=== PATIENT | male | born 1975 | race Hispanic/Latino ===

== ENCOUNTER → 2018-11-28 08:46 | Outpatient (CLI) | payer OTHER, SELFPAY ==
--- NOTE | 2018-11-28 | DI.MRI.S_ITS ---
PROCEDURE: MR SHOULDER RT W CON INDICATIONS: ADHESIVE CAPSULITIS OF RIGHT TECHNIQUE: After the administration of 12 mL of dilute intra-articular Gadolinium contrast, oblique coronal T1 and T2 spin echo with fat saturation, oblique sagittal T1 spin echo with and without fat saturation, oblique sagittal T2 fast spin echo with fat saturation, axial T1 spin echo with fat saturation through the shoulder. COMPARISON: None. FINDINGS: Image quality: Excellent. Rotator cuff: Tendinosis and locally articular and bursal surface partial-thickness tear involving distal supraspinatus and infraspinatus at the insertion greater tuberosity is seen extending to musculotendinous junction. Distal subscapularis tendon is intact. No full-thickness rotator cuff tendon rupture. No rotator cuff muscle atrophy on sagittal images. Bones and bursae: Mild acromioclavicular joint osteophytic changes are seen. No marrow edema. No fracture or dislocation. Mild glenohumeral joint osteoarthritis is also noted. The acromion demonstrates conventional anatomy, without an os acromiale. Capsule and soft tissues: The labrum and glenohumeral ligaments appear intact. The long head of the biceps tendon demonstrates normal location and morphology. The rotator interval appears normal, without fibrosis. The coracohumeral ligament is of normal thickness. No intra-articular bodies. IMPRESSION: 1. No evidence of focal labral tear. 2. Tendinosis and low-grade articular and bursal surface partial-thickness tear involving distal supraspinatus and infraspinatus. 3. Mild acromioclavicular joint glenohumeral joint osteoarthritis. Dictated by: Dominic Ellington M.D. on 11/28/2018 at 10:40 Approved by: Dominic Ellington M.D. on 11/28/2018 at 11:09
--- NOTE | 2018-11-28 | DI.RAD.S_ITS ---
PROCEDURE: FL SHOULDER INJECTION MR/CT RT INDICATIONS: ADHESIVE CAPSULITIS OF RIGHT TECHNIQUE: The indications, alternatives, benefits, risks, and complications of the procedure were explained to the patient. Written informed consent was obtained and placed in the chart. The shoulder was examined fluoroscopically and a site for needle placement chosen for entry into the glenohumeral joint from an anterior approach. The skin was prepped and draped in a sterile fashion, and 1% lidocaine infiltrated from skin down to joint capsule. A spinal needle was inserted into the glenohumeral joint, and a small amount of iodinated contrast media injected to confirm intra-articular placement of the needle tip. This was followed by approximately 12 mL dilute solution of a gadolinium containing MR contrast agent. The needle was removed and a dressing was applied. The patient was given postprocedural instructions and sent to the MR suite for MR imaging. FINDINGS: A single fluoroscopic spot image demonstrates intra-articular location of injected iodinated contrast. IMPRESSION: Successful fluoroscopically guided administration of dilute Gadolinium solution into the shoulder joint for MR arthrogram. Dictated by: Dominic Ellington M.D. on 11/28/2018 at 10:38 Approved by: Dominic Ellington M.D. on 11/28/2018 at 10:38
== END ==
PROVIDERS: Visit Provider General Practice
DX: M75.01 Adhesive capsulitis of right shoulder (principal); M75.111 Incomplete rotator cuff tear or rupture of right shoulder, not specified as traumatic; M19.011 Primary osteoarthritis, right shoulder
CPT/HCPCS: 23350; 73222; 77002

== ENCOUNTER 2019-09-19 11:40 | Emergency (ER) | payer OTHER, SELFPAY ==
[2019-09-19 12:46] VITALS: BP 120/75; PULSE 70; RESP 13; TEMP 36.5; O2SAT 98
--- NOTE | 2019-09-19 13:22 | ED_ITS ---
HPI - Dental/Oral <PITO New - Last Filed: 09/19/19 13:32> General Chief complaint: Dental/Oral Stated complaint: Right side oral/facial pain Time Seen by Provider: 09/19/19 13:08 Source: patient and family Mode of arrival: Ambulatory Limitations: no limitations History of Present Illness HPI Narrative: The patient is a 44-year-old male nonsmoker with history of poor dentition and multiple fillings and dental procedures who presents with a chief complaint of right-sided gum pain. He states that [place] and that when he received a dental block he felt his tongue ago numb. He has been back to see the dentist several times since the procedure. He states that since then he still a tingly feeling in his tongue and his comes. He states that his gum is now very sensitive, and painful at times. He states he was told that this is nerve pain, and was given ibuprofen 600. He states that this is not helping the pain. He states he wants to follow up with his regular doctor in the next few days, also follow up with dentist but he is having trouble with pain. He denies any fevers nausea vomiting or diarrhea. He states that the dentist says that there is no infection he does not need antibiotics. He states that his dentist as said that will take several months for these nerves to feel better. The pain is described as electric and shooting. Related Data Home Medications Medication Instructions Recorded Confirmed atorvastatin [Lipitor] 20 mg PO HS #30 tab 03/19/16 Previous Rx's Medication Instructions Recorded doxycycline hyclate 100 mg PO Q12H #20 cap 03/19/16 gabapentin 100 mg PO BID #20 cap 09/19/19 ketorolac 10 mg PO TID PRN #15 tab 09/19/19 Review of Systems <PITO New - Last Filed: 09/19/19 13:32> Review of Systems Narrative: GENERAL: Denies chills, fatigue, malaise, fever, sweats. HEENT: See HPI RESPIRATORY: Denies dyspnea, cough, wheezing, hemoptysis, sputum. CARDIOVASCULAR: Denies chest pain, palpitations, orthopnea, edema, GASTROINTESTINAL: Denies nausea, vomiting, abdominal pain, diarrhea, constipation, melena. : Denies dysuria, frequency, incontinence, hematuria, urinary retention. MUSCULOSKELETAL: denies weakness, joint pain, or bony pain SKIN: Denies rash, skin lesions, or other NEUROLOGIC: Denies weakness, headache, numbness, change in speech, confusion, seizures, incoordination. PSYCHIATRIC: No concerning psychosocial issues. 12 point review of systems is negative except for those stated above Patient History <Roxy PITO Calles - Last Filed: 09/19/19 13:32> Social History Smoking Status: Never smoker Smoking Status: Never smoker Substance Use Type: does not use Exam <Roxy MASHA Calles - Last Filed: 09/19/19 13:32> Narrative Exam Narrative: GENERAL: This is a well-nourished, well-developed patient, in no acute distress HEAD: Atraumatic. Normocephalic. No temporal or scalp tenderness. EYES: Pupils equal round and reactive. Extraocular motions intact. No scleral icterus. No injection or drainage. ENT: Nose without bleeding, purulent drainage or septal hematoma. Throat without erythema, tonsillar hypertrophy or exudate. Uvula midline. Airway patent. Poor dentition with multiple fillings noted. Patent has pain to palpation of right lower gum line, with no palpable fluctuance, no erythema. NECK: Trachea midline. No JVD or lymphadenopathy. Supple, nontender, no meningeal signs. CARDIOVASCULAR: Regular rate and rhythm RESPIRATORY: Clear to auscultation. Breath sounds equal bilaterally. No wheezes, rales, or rhonchi. No cough. No increased respiratory effort. No accessory muscle use GASTROINTESTINAL: Abdomen soft, non-tender, nondistended. No hepato- splenomegaly, or palpable masses. No guarding. EXTREMITIES: No clubbing, cyanosis, or edema. No joint tenderness, effusion, or edema noted. BACK: Nontender without deformity or crepitance. No flank tenderness. NEURO: AOx3. SKIN: No rash or erythema on visible skin. Initial Vital Signs Initial Vital Signs: Vital Signs Temperature 97.7 F 09/19/19 12:46 Pulse Rate 70 09/19/19 12:46 Respiratory Rate 13 09/19/19 12:46 Blood Pressure 120/75 09/19/19 12:46 Pulse Oximetry 98 09/19/19 12:46 <Audra Adrian MD - Last Filed: 09/19/19 13:39> Initial Vital Signs Initial Vital Signs: Vital Signs Temperature 97.7 F 09/19/19 12:46 Pulse Rate 70 09/19/19 12:46 Respiratory Rate 13 09/19/19 12:46 Blood Pressure 120/75 09/19/19 12:46 Pulse Oximetry 98 09/19/19 12:46 Course <PITO New - Last Filed: 09/19/19 13:32> Vital Signs Vital signs: Vital Signs - 8 hr 09/19/19 12:46 Temperature 97.7 F Pulse Rate 70 Respiratory Rate 13 Blood Pressure 120/75 Pulse Oximetry 98 <Audra Adrian MD - Last Filed: 09/19/19 13:39> Vital Signs Vital signs: Vital Signs - 8 hr 09/19/19 12:46 Temperature 97.7 F Pulse Rate 70 Respiratory Rate 13 Blood Pressure 120/75 Pulse Oximetry 98 MDM - Dental/Oral <PITO New - Last Filed: 09/19/19 13:32> MDM Narrative Medical decision making narrative: The patient is a 44-year-old male who presents with his for chief complaint of pain after dental procedure several weeks ago. 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 His exam does not indicate any infection or abscess, which correlates with previous exams done by his dentist post his procedure. His pain appears to be nerve pain related, possibly due to the block that he had during his procedure. He has been using ibuprofen 600 without success, so I did prescribe Toradol. Discussed use of Orajel etcetera. Also decided to start on gabapentin twice a day which his medical provider increase as needed and able. Patient has no questions or concerns upon discharge and states understanding of return precautions as well as follow-up care. I encouraged him to follow up with his PCP as well as his dentist in the next few days. Discussed monitor for signs and symptoms of infections. Patient has no questions or concerns upon discharge. Discharge Plan Departure Patient Disposition: Home Clinical Impression: Acute pain of mouth Discharge Date/Time: 09/19/19 13:36 Instructions: DI for Dental Pain Activity Restrictions/Additional Instructions: There are no signs of infection on your exam today. Please follow-up with primary care provider as well as your dentist. I have given you a prescription of Toradol. This is an NSAID. Do not combine it with other NSAIDs such as Aleve or ibuprofen. I suggest taking it with some food, as it can irritate your stomach. I also sent a prescription of gabapentin which is a nerve pain medication. I sent these 2 prescriptions to [facility] in [place]. Please come back to emergency department for any acute concerns such as concern for heart attack stroke etcetera Prescriptions: New gabapentin 100 mg capsule 100 mg PO BID Qty: 20 RF: 0 ketorolac 10 mg tablet 10 mg PO TID PRN (Reason: pain) Qty: 15 RF: 0 No Action atorvastatin [Lipitor] 20 MG tablet 20 mg PO HS Qty: 30 RF: 0 doxycycline hyclate 100 MG capsule 100 mg PO Q12H Qty: 20 RF: 0 Referrals: Bert Schafer [Primary Care Provider] -
== END 2019-09-19 13:36 | disposition home or self-care (01) ==
PROVIDERS: Emergency Provider Nurse Practitioner Family; PCP General Practice
DX: K08.89 Other specified disorders of teeth and supporting structures (principal)
CPT/HCPCS: 99281

== ENCOUNTER 2023-07-14 03:08 | Emergency (ER) | payer OTHER, SELFPAY ==
[2023-07-14 03:15] VITALS: BP 128/82; PULSE 58; RESP 16; TEMP 36.7; O2SAT 98; BMI 29.6
--- NOTE | 2023-07-14 03:15 | ED_ITS ---
HPI - General Adult General Chief complaint: Extremity Problem,Nontraumatic Stated complaint: right shoulder pain x1 week Time Seen by Provider: 07/14/23 03:15 History of Present Illness HPI narrative: 47-year-old gentleman with a history of hyperlipidemia, currently active duty [place], presents with neck and shoulder pain. You describes no specific trauma or incident that started this episode of pain. It has been present for approximately a week seem to reach a peak yesterday. He notes that the pain seems to be on the inner portion of his scapula, is definitely positional he is not noticing weakness or paresthesias down his arm. He is not having any chest pain, dyspnea or palpitations. He has never had similar symptoms Related Data Home Medications Medication Instructions Recorded Confirmed atorvastatin 20 mg tablet (Lipitor) 20 mg PO HS #30 tabs 03/19/16 Previous Rx's Medication Instructions Recorded doxycycline hyclate 100 mg capsule 100 mg PO Q12H #20 caps 03/19/16 gabapentin 100 mg capsule 100 mg PO BID #20 caps 09/19/19 ketorolac 10 mg tablet 10 mg PO TID PRN pain #15 tabs 09/19/19 dexamethasone 4 mg tablet 10 mg (2.5 x 4 mg) PO DAILY #5 tabs 07/14/23 gabapentin 100 mg capsule 100 mg PO BID #20 caps 07/14/23 oxycodone-acetaminophen 5 mg-325 1 tab PO Q6H PRN pain #10 tabs 07/14/23 mg tablet Allergies Allergy/AdvReac Type Severity Reaction Status Date / Time No Known Drug Allergies Allergy Verified 07/14/23 03:34 Review of Systems Review of Systems Narrative: Pertinent positive and negative findings as per HPI Patient History Medical History (Updated 07/14/23 @ 03:40 by Audra Adrian MD) Hyperlipidemia Social History Smoking Status: Never smoker Smoking Status: Never smoker Substance Use Type: does not use Exam Narrative Exam Narrative: General: Alert appropriate in no acute distress Respiratory: Able to speak in full sentences, no obvious respiratory distress Skin: No obvious rashes, warm and dry Neurologic: Grossly intact no obvious asymmetries or abnormalities Psych: appropriate insight and affect, cooperative Neck: He has tenderness midline C7-C8 that reproduces pain radiating down to the medial portion of his scapula on the right side. There is no redness or fullness Extremity: Right upper extremity is unremarkable. He has full and nonpainful range of motion at the shoulder. With active internal rotation he has pain along the medial scapula and if lifting his arm above his head he has similar pain. Medical Decision Making MDM Narrative Medical decision making narrative: CC: Shoulder pain Data collected from: patient Social determinants of health that may influence the patients condition: He is deploying to [facility] in 45 days Differential considered: Rotator cuff injury, shoulder joint abnormality, pneumonia Exam documented above, pertinent findings include: Surprisingly, the patient is actually quite tender midline C7-8 and this completely reproduces his pain. He had not identified this is the source of tenderness previously. He is tender to palpation along the medial aspect of his scapula but palpation in this area does not reproduce his pain. Passive range of motion of the shoulder does not reproduce his pain. He is neurovascularly intact down his right arm Treatments: Oral dexamethasone and oral oxycodone, cervical soft collar is placed Discussion: I believe this is C5 radiculopathy affecting the dorsal scapular nerve descending from the cervical region down to the medial border of the scapula. It also elevates the levator scapula, rhomboid major and rhomboid minor which explains the shoulder complaints of pain. There is no evidence of pneumonia or pulmonary dysfunction. We talked about options for treating the pain including using a soft cervical collar to support the neck. This is for comfort only if that is not helpful he does not need to continue. I will place him on 3 days of dexamethasone, 1st dose is given today. Talked about regular use of ibuprofen and Tylenol. We will give him a brief course of oxycodone to use for the next 2-3 days. We will also suggest gabapentin for the neuropathic pain. Apparently he had some nerve difficulty with his jaw and found that to be quite effective for short-term use. Because he is going to be deploying shortly I suggested that [place] to see if physical therapy might be arranged to maximize treatment before he deployed. He has no risk factors for epidural abscess and no history of trauma to suggest bony cervical spine injury. I do not think that additional imaging or blood workup is going to be required at this time. Questions are answered and he is safe for discharge Discharge Plan Departure Patient Disposition: Home Clinical Impression: Cervical radiculopathy at C5 Instructions: DI for Cervical Radiculopathy Activity Restrictions/Additional Instructions: Thank you for coming in today I believe that you have inflammation at about the C5 level in your neck that is pinching the nerve that goes to the muscles just inside the shoulder blade. I am going to suggest 3 days of dexamethasone, a steroid to reduce inflammation. You were given the first dose in the ER For regular levels of pain using 400 mg of ibuprofen (2 [id number] pills) and 1 Tylenol every 6 hours can be very helpful. For severe pain you can use 400 mg of ibuprofen and 1 Percocet. This has Tylenol plus oxycodone in it. This is a narcotic and you should not use this while you are driving or working. Oxycodone does have the potential for addiction so please use it sparingly. It also will cause constipation so make sure you are using a stool softener I have given you a soft cervical collar. If you find that this extra neck supp ort is helpful in reducing the amount of pain please continue using it. If it is not helpful you do not need to continue. You may find that ice to the back of your neck can help the pain as well. Finally, I am going to have you use gabapentin 100 mg in the morning and at night. This is a medicine that changes how your brain interprets nerve pain and can be helpful as your body is healing. If you find that you are getting worse or develop any new symptoms, please feel free to return to the emergency department for further evaluation. Prescriptions: New oxycodone-acetaminophen 5-325 mg tablet 1 tab PO Q6H PRN (Reason: pain) Qty: 10 0RF gabapentin 100 mg capsule 100 mg PO BID Qty: 20 0RF Rx Instructions: for nerve pain dexamethasone 4 mg tablet 10 mg PO DAILY Qty: 5 0RF No Action atorvastatin [Lipitor] 20 MG tablet 20 mg PO HS Qty: 30 doxycycline hyclate 100 MG capsule 100 mg PO Q12H Qty: 20 0RF gabapentin 100 mg capsule 100 mg PO BID Qty: 20 0RF ketorolac 10 mg tablet 10 mg PO TID PRN (Reason: pain) Qty: 15 0RF Referrals: Bert Schafer DO [Primary Care Provider] - Stand Alone Forms: Patient Portal/API
[2023-07-14 03:26] VITALS: PULSE 62
[2023-07-14] MEDS: dexAMETHasone 4 MG TABLET 12 MG PO (03:34)
[2023-07-14] MEDS: OXYCODONE/ACETAMINOPHEN 5/325 TABLET 1 TAB PO (03:35)
== END 2023-07-14 04:12 | disposition home or self-care (01) ==
PROVIDERS: Emergency Provider Emergency Medicine; PCP General Practice
DX: M54.12 Radiculopathy, cervical region (principal)
CPT/HCPCS: 99283

== ENCOUNTER → 2025-03-24 10:48 | Outpatient (CLI) | payer OTHER, SELFPAY ==
--- NOTE | 2025-03-24 10:50 | DI.RAD.S_ITS ---
PROCEDURE: FL JOINT INJECTION LARGE RT INDICATIONS: RT SHOULDER INJECTION COMPARISON: None. TECHNIQUE: The indications, alternatives, benefits, risks, and complications of the procedure were explained to the patient. Written informed consent was obtained and placed in the chart. The patient was placed in an appropriate position on the fluoroscopy table, and a site was chosen for percutaneous access under fluoroscopic guidance. The site was prepped and draped in a sterile fashion. Local anesthetic was administered using a 1% lidocaine solution. A hypodermic or spinal needle was then used to access the symptomatic joint. Intra-articular location of the needle tip was confirmed by injecting a small amount of contrast, followed by steroid administration. The needle was then withdrawn, and a bandage applied to the puncture site. FINDINGS: Joint injected: Right shoulder Medications injected: 5 mL of 40 mg/mL Kenalog and 0.5% Ropivacaine mixture. Patient's pain before injection: 2-3 out of 10. Patient's pain after injection: 0 out of 10. Complications: None. IMPRESSION: Successful fluoroscopically guided administration of steroid and anaesthetic solution into the right shoulder joint. Dictated by: Henry Ochoa M.D. on 03/24/2025 at 12:18 Approved by: Henry Ochoa M.D. on 03/24/2025 at 12:18
[2025-03-24] MEDS: LIDOCAINE 1% 20 ML INJ (12:06)
[2025-03-24] MEDS: TRIAMCINOLONE 40 MG/ML VIAL 20 MG INTRA-ARTI (12:07)
[2025-03-24] MEDS: TRIAMCINOLONE 40 MG/ML VIAL INTRA-ARTI (12:08)
== END ==
PROVIDERS: PCP Student in an Organized Health Care Education/Training Program
DX: M13.811 Other specified arthritis, right shoulder (principal)
CPT/HCPCS: 20610; 77002; Q9967